=== PATIENT | male | born 1930 | race Caucasian/White ===

== ENCOUNTER 2017-11-09 14:13 | Emergency (ER) | payer MEDICARE, BC ==
[~2017-11-09 14:13] MED LIST: Donnatal Elixir 16.2 MG/5 ML UDCUP ONE
[2017-11-09 15:03] LABS: #Basophils 0.1 thou/uL (0.0-0.2); #Eosinphils 0.3 thou/uL (0.0-0.7); #Lymphocytes 1.1 thou/uL (1.20-3.40); #Monocytes 0.7 thou/uL (0.11-0.59); #Neutrophils 7.1 thou/uL (1.40-6.50); %Basophils 0.6 % (0.0-1.0); %Eosinophils 3.3 % (0.0-10.0); %Monocytes 7.7 % (0.0-10.0); %Neutrophils 76.4 % (42.0-75.0); Hemoglobin 15.2 g/dL (14.0-18.0); Mean Corpuscular HGB CONC 32.8 g/dL (32.0-36.0); Mean Corpuscular Hemoglobin 32.9 pg (27.0-31.0); Mean Corpuscular Volume 100.4 fl (80.0-94.0); Mean Platelet Volume 8.5 fL (7.4-10.4); Platelet Count 197 thou/uL (130-400); RBC Distribution Width 12.1 % (11.5-14.5); Red Blood Cell (RBC) Count 4.63 mill/uL (4.70-6.10); White Blood Cell (WBC) Count 9.3 thou/uL (4.8-10.8)
--- NOTE | 2017-11-09 15:05 | RAD ---
RADIOGRAPH CHEST 1 VIEW: HISTORY: 87-year-old male with chest pain. FINDINGS: There is no air space density, pulmonary edema, or pneumothorax. The right lateral costophrenic angl es is sharp. The left lateral costophrenic angle is effaced. IMPRESSION: 1. No acute pulmonary findings. 2. Small left pleural effusion vs. scarring at left pleurodiaphragmatic interface. ashwini POS: ABBIE
[2017-11-09] MEDS ORDERED: Donnatal Elixir 16.2 MG/5 ML UDCUP ONE (15:12)
[2017-11-09] MEDS ORDERED: Mag-Al Plus 1200 MG/1200 MG/120 MG/30 ML UDCUP ONE (15:12)
[2017-11-09] MEDS ORDERED: Lidocaine Viscous Sol 2% 15 ml UD Cup ONE (15:12)
[2017-11-09 15:19] LABS: ALT (SGPT) 18 U/L (8-55); AST (SGOT) 19 U/L (5-34); Albumin 4.2 g/dL (3.4-4.8); Alkaline Phosphatase 46 U/L (40-150); Anion Gap 16 mmol/L (10-20); BUN (Urea Nitrogen) 22 mg/dL (8.4-25.7); Bilirubin, Total 0.5 mg/dL (0.2-1.2); Calc. Creatinine Clearance 0 mL/min (70-130); Calcium 9.2 mg/dL (7.8-10.44); Carbon Dioxide 26 mmol/L (23-31); Chloride 105 mmol/L (98-107); Estimated GFR-MDRD 46; Globulin 2.9 g/dL (2.4-3.5); Glucose 119 mg/dL (83-110); Protein, Total 7.1 g/dL (5.8-8.1); Sodium 142 mmol/L (136-145)
[2017-11-09 15:20] LABS: CKMB 1.6 ng/mL (0-6.6); Troponin I Less than 0.010 ng/mL (< 0.028)
== END 2017-11-09 15:43 | disposition home or self-care (01) ==
LOC: MADERS 14:13
DX: R07.89 Other chest pain (principal); R10.13 Epigastric pain; E78.5 Hyperlipidemia, unspecified; I10 Essential (primary) hypertension; Z79.82 Long term (current) use of aspirin; Z79.899 Other long term (current) drug therapy
CPT/HCPCS: 36415; 71045; 80053; 82553; 84484; 85025; 93005

== ENCOUNTER 2019-10-18 22:46 | Emergency (ER) | payer BC, MEDICARE, OTHER ==
[2019-10-18 23:30] LABS: Mean Corpuscular HGB CONC 32.4 g/dL (32.0-36.0); Mean Corpuscular Hemoglobin 32.3 pg (27.0-31.0); Mean Corpuscular Volume 99.9 fL (78.0-98.0); Mean Platelet Volume 9.8 fL (7.4-10.4); Platelet Count 163 thou/uL (130-400); RBC Distribution Width 11.9 % (11.5-14.5); Red Blood Cell (RBC) Count 4.64 mill/uL (4.70-6.10); White Blood Cell (WBC) Count 18.2 thou/uL (4.8-10.8)
[2019-10-18 23:40] LABS: Band 17 % (5-11); Lymphocytes 1 % (21-51); MDiff Complete? YES; Monocytes 10 % (0-10); Neutrophil 72 % (42-75); Platelet Morphology Comment Appears Adequate; RBC Morphology Normal
[2019-10-18 23:46] LABS: ALT (SGPT) 340 U/L (8-55); AST (SGOT) 460 U/L (5-34); Alkaline Phosphatase 112 U/L (40-110); Anion Gap 16 mmol/L (10-20); BUN (Urea Nitrogen) 24 mg/dL (8.4-25.7); Bilirubin, Total 3.3 mg/dL (0.2-1.2); Calc. Creatinine Clearance 0 mL/min (70-130); Calcium 8.8 mg/dL (7.8-10.44); Carbon Dioxide 25 mmol/L (23-31); Chloride 104 mmol/L (98-107); Estimated GFR-MDRD 71; Globulin 2.4 g/dL (2.4-3.5); Glucose 146 mg/dL (83-110); Potassium 3.6 mmol/L (3.5-5.1); Protein, Total 6.4 g/dL (5.8-8.1); Sodium 141 mmol/L (136-145)
[2019-10-18] MEDS ORDERED: Acetaminophen 500 MG TAB ONE (23:58)
== END 2019-10-19 00:58 | disposition short-term general hospital (02) ==
LOC: MADERS 22:46
DX: R11.2 Nausea with vomiting, unspecified (principal); R94.5 Abnormal results of liver function studies; I25.2 Old myocardial infarction; I49.9 Cardiac arrhythmia, unspecified; I10 Essential (primary) hypertension; I48.91 Unspecified atrial fibrillation; E78.00 Pure hypercholesterolemia, unspecified; E78.5 Hyperlipidemia, unspecified; Z95.5 Presence of coronary angioplasty implant and graft
CPT/HCPCS: 80053; 83605; 83880; 84484; 85025; 87804; 93005; 96360

== ENCOUNTER 2019-10-22 08:30 | Emergency (ER) | payer MEDICARE ==
[2019-10-22] MEDS ORDERED: Sodium Chloride 0.45% 1,000 ML ONE (09:15)
[2019-10-22] MEDS ORDERED: Meropenem 1 GM VIAL ONE (09:15)
[2019-10-22] MEDS ORDERED: Sodium Chloride 0.9% 100 ML ONE (09:15)
[2019-10-22 09:33] LABS: #Basophils 0.1 thou/uL (0.0-0.2); #Lymphocytes 0.5 thou/uL (1.20-3.40); #Monocytes 1.2 thou/uL (0.11-0.59); #Neutrophils 13.5 thou/uL (1.40-6.50); %Basophils 0.7 % (0.0-1.0); %Eosinophils 0.2 % (0.0-10.0); %Lymphocytes 3.2 % (21.0-51.0); %Monocytes 7.8 % (0.0-10.0); Hemoglobin 13.1 g/dL (14.0-18.0); Mean Corpuscular Hemoglobin 32.4 pg (27.0-31.0); Mean Corpuscular Volume 98.2 fL (78.0-98.0); Mean Platelet Volume 9.5 fL (7.4-10.4); Platelet Count 151 thou/uL (130-400); RBC Distribution Width 11.8 % (11.5-14.5); Red Blood Cell (RBC) Count 4.05 mill/uL (4.70-6.10); White Blood Cell (WBC) Count 15.4 thou/uL (4.8-10.8)
[2019-10-22 09:49] LABS: ALT (SGPT) 707 U/L (8-55); AST (SGOT) 596 U/L (5-34); Albumin 3.5 g/dL (3.4-4.8); Alkaline Phosphatase 123 U/L (40-110); Anion Gap 16 mmol/L (10-20); BUN (Urea Nitrogen) 13 mg/dL (8.4-25.7); Bilirubin, Total 3.5 mg/dL (0.2-1.2); CK (CPK) 639 U/L (30-200); Calc. Creatinine Clearance 0 mL/min (70-130); Calcium 8.9 mg/dL (7.8-10.44); Carbon Dioxide 24 mmol/L (23-31); Chloride 99 mmol/L (98-107); Estimated GFR-MDRD Greater than 90; Globulin 2.7 g/dL (2.4-3.5); Glucose 131 mg/dL (83-110); Lipase 11 U/L (8-78); Potassium 3.7 mmol/L (3.5-5.1); Protein, Total 6.2 g/dL (5.8-8.1); Sodium 135 mmol/L (136-145)
[2019-10-22 10:06] LABS: CKMB 1.7 ng/mL (0-6.6)
[2019-10-22] MEDS ORDERED: Iopamidol 370 76% 125 ML VIAL FS ONE (10:22)
[2019-10-22] MEDS ORDERED: Sodium Chloride 0.9% 100 ML BAG ONE (10:22)
[2019-10-22 10:58] LABS: Bilirubin Small (Negative); Blood, Urine Moderate (Negative); Clarity Clear (Clear); Glucose, Urine (Dipstick) Negative (Negative); Leukocyte Negative (Negative); Nitrite Negative (Negative); Protein, Urine (Dipstick) 100 mg/dL (Neg-Trace)
--- NOTE | 2019-10-22 11:01 | RAD ---
XR Chest 1 View Portable HISTORY: Dyspnea COMPARISON: 11/09/2017 FINDINGS: The heart size is prominent. The lungs are well expanded without focal areas of consolidati on, pneumothorax or pleural effusions. There is no evidence of vel edema. There is elevation the right hemidiaphragm. There are degenerative changes in the shoulder joints.
[2019-10-22 11:02] LABS: Bacteria/HPF Rare-Few HPF (None Seen); RBC/HPF 0-3 HPF (0-3); Squamous Epithelial 0-3 HPF (0-3); WBC/HPF None Seen HPF (0-3)
[2019-10-22] MEDS ORDERED: Sodium Chloride 0.9% 1,000 ML ONE (11:22)
--- NOTE | 2019-10-22 12:33 | CT ---
CT PULMONARY ANGIOGRAM WITH IV CONTRAST AND 3D POST PROCESSING: HISTORY: Dyspnea. The patient had a cholecystectomy two days ago. FINDINGS: There is good contrast opacification of the pulmonary arterial vasculature without filling defects to suggest pulmonary embolism. The thoracic aorta is well opacified without aneurysmal dissection. Ther e is elevation of the right hemidiaphragm. A small right pleural effusion is seen with adjacent infil trate/atelectatic changes. There is a 6 mm peripheral nodule in the lateral segment of the right midd le lobe. Upper abdominal tomograms demonstrate changes of cholecystectomy and free air in the gallbladder elidia a and in the right subdiaphragmatic region, likely from recent cholecystectomy. IMPRESSION: No CT evidence of pulmonary embolism. 6 month foloowup of lung nodule with CT scan is recommended. Code LN POS: ABBIE
== END 2019-10-22 12:00 | disposition short-term general hospital (02) ==
LOC: MADERS 08:30
DX: R50.82 Postprocedural fever (principal); K83.1 Obstruction of bile duct; R79.89 Other specified abnormal findings of blood chemistry; I25.2 Old myocardial infarction; I48.91 Unspecified atrial fibrillation; E78.5 Hyperlipidemia, unspecified; I10 Essential (primary) hypertension; E78.00 Pure hypercholesterolemia, unspecified
CPT/HCPCS: 71045; 71275; 80053; 81003; 81015; 82150; 82550; 82553; 83690; 84484; 85025; 85379; 87040; 87086; 93005; 96365; 96366; J2185; J3490; J7050; Q9967

== ENCOUNTER 2019-10-25 19:37 | Inpatient (IN) | payer MEDICARE ==
[2019-10-25 20:33] VITALS: BMI 24.8
[2019-10-25] MEDS ORDERED: Bisacodyl 10 MG SUPP PR PRN (22:12)
[2019-10-25] MEDS ORDERED: Nitroglycerin 0.4 MG TAB (25 Tab Bottle) SL PRN (22:13)
[2019-10-25] MEDS ORDERED: Tamsulosin HCl 0.4 MG CAP PO SCH (22:15)
[2019-10-25] MEDS ORDERED: Polyethylene Glycol 3350 17 GM Packet PO SCH (22:15)
[2019-10-25] MEDS: Tamsulosin HCl 0.4 MG CAP PO SCH (22:17)
[2019-10-26 05:44] LABS: #Basophils 0.1 thou/uL (0.0-0.2); #Eosinphils 0.2 thou/uL (0.0-0.7); #Lymphocytes 0.9 thou/uL (1.20-3.40); #Monocytes 1.2 thou/uL (0.11-0.59); #Neutrophils 9.5 thou/uL (1.40-6.50); %Basophils 0.8 % (0.0-1.0); %Eosinophils 1.8 % (0.0-10.0); %Lymphocytes 7.3 % (21.0-51.0); %Monocytes 10.3 % (0.0-10.0); %Neutrophils 79.8 % (42.0-75.0); Hemoglobin 11.8 g/dL (14.0-18.0); Mean Corpuscular HGB CONC 32.8 g/dL (32.0-36.0); Mean Corpuscular Hemoglobin 32.2 pg (27.0-31.0); Mean Corpuscular Volume 98.1 fL (78.0-98.0); Mean Platelet Volume 7.7 fL (7.4-10.4); Platelet Count 218 thou/uL (130-400); RBC Distribution Width 11.5 % (11.5-14.5); Red Blood Cell (RBC) Count 3.66 mill/uL (4.70-6.10); White Blood Cell (WBC) Count 11.9 thou/uL (4.8-10.8)
[2019-10-26 05:58] LABS: ALT (SGPT) 204 U/L (8-55); AST (SGOT) 51 U/L (5-34); Albumin 2.9 g/dL (3.4-4.8); Alkaline Phosphatase 74 U/L (40-110); Anion Gap 14 mmol/L (10-20); BUN (Urea Nitrogen) 18 mg/dL (8.4-25.7); Bilirubin, Total 1.7 mg/dL (0.2-1.2); Calc. Creatinine Clearance 83 mL/min (70-130); Calcium 8.4 mg/dL (7.8-10.44); Carbon Dioxide 27 mmol/L (23-31); Chloride 99 mmol/L (98-107); Estimated GFR-MDRD Greater than 90; Globulin 2.5 g/dL (2.4-3.5); Glucose 114 mg/dL (83-110); Potassium 3.4 mmol/L (3.5-5.1); Protein, Total 5.4 g/dL (5.8-8.1); Sodium 137 mmol/L (136-145)
[2019-10-26] MEDS ORDERED: Magnesium Citrate 300 ML BOT PO PRN (08:00)
[2019-10-26] MEDS: Carvedilol 3.125 MG TAB PO SCH ×2 (08:27→17:00)
[2019-10-26] MEDS: Polyethylene Glycol 3350 17 GM Packet PO SCH (08:27)
[2019-10-26] MEDS: Apixaban 5 MG TAB PO SCH ×2 (08:27→20:08)
[2019-10-26] MEDS: Clopidogrel Bisulfate 75 MG TAB PO SCH (08:27)
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
[2019-10-26] MEDS ORDERED: Tamsulosin HCl 0.4 MG CAP PO SCH (20:15)
[2019-10-27] MEDS: Apixaban 5 MG TAB PO SCH ×2 (08:32→20:35)
[2019-10-27] MEDS: Polyethylene Glycol 3350 17 GM Packet PO SCH (08:32)
[2019-10-27] MEDS: Clopidogrel Bisulfate 75 MG TAB PO SCH (08:32)
[2019-10-27] MEDS: Carvedilol 3.125 MG TAB PO SCH ×2 (08:32→17:02)
--- NOTE | 2019-10-27 09:36 | PRG ---
DATE OF SERVICE: SUBJECTIVE: The patient said that he is doing pretty good this morning. He has already been up walking some with physical therapist. His daughter said that he is urinating just a little bit more often than usual in smaller amounts. He denies any burning. He just was worried that he is getting urinary tract infection since he had the UTI with sepsis back in the summer. He is presently on Levaquin. He is using the incentive spirometer, but not as often. He said he did have a little bowel movement after suppository early this morning. OBJECTIVE: GENERAL: The patient is sitting up in a bedside chair, preparing the breakfast. He is alert, appears in no distress. VITAL SIGNS: Temperature of 98.1, pulse 73, respirations 16, O2 sat 96% on room air, and blood pressure 150/72. LUNGS: Clear. HEART: Regular rate. EXTREMITIES: No edema. ASSESSMENT: 1. Generalized weakness and deconditioning. a. Following recent acute cholecystitis and choledocholithiasis and surgery. b. Recently hospitalized at [facility] from 10/19 to 10/21/2019 for acute cholelithiasis and choledocholithiasis, requiring laparoscopic cholecystectomy and ERCP with balloon extraction of the biliary calculus. Hospitalized from 10/22 to 10/25/2019 for fever and weakness. Fever from atelectasis. c. Improved as of 10/27/2019 2. Recent acute cholecystitis and choledocholithiasis. a. Status post laparoscopic cholecystectomy on 10/20/2019. b. Status post ERCP with balloon extraction of biliary calculus on 2019. c. Liver enzymes normalizing. d. Healing. 3. Coronary artery disease. a. Status post stents x2, 2006. b. Presently asymptomatic. 4. Paroxysmal atrial fibrillation. a. Eliquis. b. Rate controlled. 5. Benign prostatic hypertrophy. 6. Hearing impairment. 7. Hypercholesterolemia. PLAN: Continue PT. Check a UA. Continue the MiraLAX. We will continue to hold the simvastatin until liver studies normalized. We will recheck CBC and CMP in the morning. Job ID: [id number] MTDD
[2019-10-27 09:52] LABS: ALT (SGPT) 194 U/L (8-55); AST (SGOT) 55 U/L (5-34); Albumin 3.5 g/dL (3.4-4.8); Alkaline Phosphatase 84 U/L (40-110); Anion Gap 16 mmol/L (10-20); BUN (Urea Nitrogen) 19 mg/dL (8.4-25.7); Calc. Creatinine Clearance 74 mL/min (70-130); Carbon Dioxide 27 mmol/L (23-31); Chloride 98 mmol/L (98-107); Estimated GFR-MDRD 90; Globulin 3.2 g/dL (2.4-3.5); Glucose 129 mg/dL (83-110); Protein, Total 6.7 g/dL (5.8-8.1); Sodium 137 mmol/L (136-145)
[2019-10-27 10:27] LABS: Bilirubin Small (Negative); Blood, Urine Small (Negative); Clarity Clear (Clear); Glucose, Urine (Dipstick) Negative (Negative); Leukocyte Negative (Negative); Nitrite Negative (Negative); Protein, Urine (Dipstick) 30 mg/dL (Neg-Trace); Urobilinogen > or = 8.0 mg/dL (Less than 2)
[2019-10-27 10:30] LABS: Potassium 3.6 mmol/L (3.5-5.1)
[2019-10-27 10:36] LABS: Bacteria/HPF Rare-Few HPF (None Seen); Squamous Epithelial 0-3 HPF (0-3); WBC/HPF 0-3 HPF (0-3)
[2019-10-27] MEDS: Acetaminophen 500 MG TAB PO PRN (20:35)
[2019-10-27] MEDS: Tamsulosin HCl 0.4 MG CAP PO SCH (20:35)
[2019-10-28 05:38] LABS: #Basophils 0.1 thou/uL (0.0-0.2); #Eosinphils 0.2 thou/uL (0.0-0.7); #Monocytes 1.2 thou/uL (0.11-0.59); #Neutrophils 13.8 thou/uL (1.40-6.50); %Basophils 0.5 % (0.0-1.0); %Eosinophils 1.2 % (0.0-10.0); %Lymphocytes 6.4 % (21.0-51.0); %Monocytes 7.2 % (0.0-10.0); %Neutrophils 84.6 % (42.0-75.0); Mean Corpuscular HGB CONC 33.8 g/dL (32.0-36.0); Mean Corpuscular Hemoglobin 32.8 pg (27.0-31.0); Mean Corpuscular Volume 97.1 fL (78.0-98.0); Mean Platelet Volume 7.3 fL (7.4-10.4); Platelet Count 260 thou/uL (130-400); RBC Distribution Width 11.6 % (11.5-14.5); Red Blood Cell (RBC) Count 3.65 mill/uL (4.70-6.10); White Blood Cell (WBC) Count 16.3 thou/uL (4.8-10.8)
[2019-10-28] MEDS: Polyethylene Glycol 3350 17 GM Packet PO SCH (08:42)
[2019-10-28] MEDS: Clopidogrel Bisulfate 75 MG TAB PO SCH (08:42)
[2019-10-28] MEDS: Carvedilol 3.125 MG TAB PO SCH ×2 (08:42→17:35)
[2019-10-28] MEDS: Apixaban 5 MG TAB PO SCH ×2 (08:42→21:39)
--- NOTE | 2019-10-28 12:02 | PRG ---
DATE OF SERVICE: 10/28/2019 SUBJECTIVE: The patient said he is doing good. He has already been walking this morning and he is doing better. He is still requiring some assistance with his transfers, but he is feeling a little stronger. He says he is urinating okay. There is no burning. He says his bowels are moving some and he thinks they are a lot better. OBJECTIVE: GENERAL: The patient is sitting up in a bedside chair, visiting with his . He appears very comfortable, in no distress. VITAL SIGNS: His temperature is 97.5, pulse 73, respirations 18, O2 saturation 98% on room air, blood pressure 143/69. LUNGS: Clear. HEART: Regular rate. EXTREMITIES: The patient has some trace edema in his legs. LABORATORY DATA: His H and H are 12 and 35.4, white cell count 16,300, 84% segs , 6% lymphocytes, and platelet count of 260,000. Sodium 137, potassium 3.6, BUN 19, creatinine 0.81, glucose 129, total bilirubin 2, AST 55, ALT 194, albumin up to 3.5. Urinalysis showed 4 to 6 rbc's, 0 to 3 wbc's, nitrite negative. ASSESSMENT: 1. Generalized weakness and deconditioning. a. Following recent acute cholecystitis and choledocholithiasis and surgery. b. Improving as of 10/28/2019. 2. Recent acute cholecystitis and choledocholithiasis. a. Status post laparoscopic cholecystectomy on 10/20/2019. b. Status post ERCP with balloon extraction of biliary calculus on 2019. c. Liver enzyme elevation is gradually normalizing as of 10/28/2019. d. Continued improvement as of 10/28/2019. 3. Rehospitalization at [facility] from 10/22/2019 to 10/25/2019 for fever and weakness, that is felt to be secondary to atelectasis and possibility of some mild aspiration. 4. Coronary artery disease. a. Status post stents x2 in 2006. b. Presently asymptomatic. 5. Paroxysmal atrial fibrillation. a. On chronic anticoagulation with Eliquis. b. Rate controlled. 6. Benign prostatic enlargement. 7. Hearing impairment. 8. Hypercholesterolemia. PLAN: The patient is making continued gradual improvement. We will continue present care. He remains afebrile. His white cell count is mildly elevated, but he does not have anymore of the band formation. We will continue to follow this. The patient presently has no evidence of any infection. Continue the incentive spirometry. Continue PT and OT. We will have patient wear some knee-high support hose when he is out of bed. Job ID: [id number] [facility]
[2019-10-28] MEDS: Acetaminophen 500 MG TAB PO PRN (21:39)
[2019-10-28] MEDS: Tamsulosin HCl 0.4 MG CAP PO SCH (21:39)
[2019-10-28] MEDS ORDERED: Melatonin 3 MG TAB PO SCH (22:30)
[2019-10-29] MEDS: Apixaban 5 MG TAB PO SCH ×2 (08:27→20:53)
[2019-10-29] MEDS: Polyethylene Glycol 3350 17 GM Packet PO SCH (08:27)
[2019-10-29] MEDS: Carvedilol 3.125 MG TAB PO SCH ×2 (08:27→17:16)
[2019-10-29] MEDS: Clopidogrel Bisulfate 75 MG TAB PO SCH (08:27)
[2019-10-29] MEDS: Tamsulosin HCl 0.4 MG CAP PO SCH (20:53)
[2019-10-29] MEDS: Melatonin 3 MG TAB PO SCH (20:53)
[2019-10-30] MEDS: Acetaminophen 500 MG TAB PO PRN (03:17)
[2019-10-30] MEDS: Apixaban 5 MG TAB PO SCH ×2 (08:28→20:36)
[2019-10-30] MEDS: Carvedilol 3.125 MG TAB PO SCH ×2 (08:28→17:12)
[2019-10-30] MEDS: Clopidogrel Bisulfate 75 MG TAB PO SCH (08:28)
[2019-10-30] MEDS: Polyethylene Glycol 3350 17 GM Packet PO SCH (08:29)
[2019-10-30] MEDS ORDERED: Fluconazole 100 MG TAB PO SCH (15:00)
[2019-10-30] MEDS: Clotrimazole 1% Cream 15 GM TUBE TOP SCH (20:36)
[2019-10-30] MEDS: Tamsulosin HCl 0.4 MG CAP PO SCH (20:37)
[2019-10-30] MEDS: Melatonin 3 MG TAB PO SCH (20:37)
[2019-10-31 05:26] LABS: #Basophils 0.1 thou/uL (0.0-0.2); #Eosinphils 0.3 thou/uL (0.0-0.7); #Lymphocytes 1.2 thou/uL (1.20-3.40); #Neutrophils 9.1 thou/uL (1.40-6.50); %Basophils 0.6 % (0.0-1.0); %Eosinophils 2.4 % (0.0-10.0); %Lymphocytes 9.9 % (21.0-51.0); %Monocytes 8.6 % (0.0-10.0); %Neutrophils 78.4 % (42.0-75.0); Hemoglobin 11.7 g/dL (14.0-18.0); Mean Corpuscular HGB CONC 32.4 g/dL (32.0-36.0); Mean Corpuscular Volume 98.6 fL (78.0-98.0); Platelet Count 340 thou/uL (130-400); RBC Distribution Width 11.9 % (11.5-14.5); Red Blood Cell (RBC) Count 3.65 mill/uL (4.70-6.10); White Blood Cell (WBC) Count 11.7 thou/uL (4.8-10.8)
[2019-10-31 05:39] LABS: Anion Gap 14 mmol/L (10-20); BUN (Urea Nitrogen) 16 mg/dL (8.4-25.7); Calc. Creatinine Clearance 78 mL/min (70-130); Calcium 8.4 mg/dL (7.8-10.44); Carbon Dioxide 25 mmol/L (23-31); Chloride 101 mmol/L (98-107); Estimated GFR-MDRD Greater than 90; Glucose 115 mg/dL (83-110); Potassium 4.2 mmol/L (3.5-5.1); Sodium 136 mmol/L (136-145)
--- NOTE | 2019-10-31 08:12 | PRG ---
DATE OF SERVICE: 10/29/2019 SUBJECTIVE: The patient says he is feeling good this morning. Said he had a very good night. He had asked for something to help him sleep. He was given his Tylenol and also melatonin 3 mg. Said this worked very good. He slept through the night. OBJECTIVE: GENERAL: The patient is sitting up in a bedside chair. He is alert and talkative, appears comfortable, in no distress. VITAL SIGNS: Temperature 98.7, pulse 60, respirations 16, O2 saturations 97% on room air, blood pressure 153/72. LUNGS: Good breath sounds. Lungs are clear. HEART: Regular rate. EXTREMITIES: No edema. The patient is wearing his knee-high support hose. ASSESSMENT: 1. Generalized weakness and deconditioning. a. Following recent acute cholecystitis and choledocholithiasis and surgery. b. Improving as of 10/29/2019. 2. Recent acute cholecystitis and choledocholithiasis. a. Status post laparoscopic cholecystectomy on 10/20/2019. b. Status post endoscopic retrograde cholangiopancreatography with balloon extraction of biliary calculus on 10/20/2019. c. Liver enzyme elevation gradually normalizing. d. Continued improvement in healing as of 10/29/2019. 3. Rehospitalization at [facility] from 10/22 until 10/25/2019 for fever and weakness that was felt to be deconditioning and atelectasis and possible mild aspiration. a. Remains afebrile and with excellent breath sounds and normal O2 saturation as of 10/29/2019. 4. Coronary artery disease. a. Status post stents x2, 2006. b. Presently asymptomatic. 5. Paroxysmal atrial fibrillation. a. On chronic anticoagulation with Eliquis. b. Rate control. 6. Benign prostatic enlargement. 7. Hearing impairment. 8. Hypercholesterolemia. PLAN: Continue present care. Continue the melatonin and Tylenol as needed. Continue PT and OT. Job ID: [id number] [facility]
[2019-10-31] MEDS: Fluconazole 100 MG TAB PO SCH (08:22)
[2019-10-31] MEDS: Clotrimazole 1% Cream 15 GM TUBE TOP SCH ×2 (08:22→20:19)
[2019-10-31] MEDS: Carvedilol 3.125 MG TAB PO SCH ×2 (08:22→17:47)
[2019-10-31] MEDS: Clopidogrel Bisulfate 75 MG TAB PO SCH (08:22)
[2019-10-31] MEDS: Apixaban 5 MG TAB PO SCH ×2 (08:22→20:19)
[2019-10-31] MEDS: Polyethylene Glycol 3350 17 GM Packet PO SCH (08:24)
--- NOTE | 2019-10-31 08:49 | PRG ---
DATE OF SERVICE: 10/31/2019 SUBJECTIVE: The patient said he is doing better. He walked a lot yesterday with family assisting. He slept good last night. This morning, he is feeling fine and has already been to therapy. OBJECTIVE: GENERAL: The patient is sitting up in the chair, visiting his daughter. He is alert, appears in no distress. VITAL SIGNS: Temp 99.2 during the night, pulse 72, respirations 18, O2 saturation 98% on room air, blood pressure 131/62. LUNGS: Clear. HEART: Regular rate. EXTREMITIES: No edema. LABORATORY DATA: His lab shows H and H of 11.7 and 36, white cell count down to 11,700 with 78% segs and 10% lymphocytes, platelet count 340,000. Sodium 136, potassium 4.2, BUN 16, creatinine 0.77, glucose 115. ASSESSMENT: 1. Generalized weakness and deconditioning. a. Following a recent acute cholecystitis and choledocholithiasis and surgery. b. Improving as of 10/31/2019. 2. Recent acute cholecystitis and choledocholithiasis. a. Status post laparoscopic cholecystectomy on 10/20/2019. b. Status post endoscopic retrograde cholangiopancreatography with balloon extraction of biliary calculus on 10/20/2019. c. Liver enzyme elevation, gradually improving as of 10/28/2019. d. Continued improvement as of 10/31/2019. 3. Rehospitalization at [facility] from 10/22/2019 to 10/25/2019 for fever and weakness. This felt to be secondary to deconditioning, atelectasis, and possible mild aspiration. 4. Coronary artery disease. a. Status post stents x2 in 2017. b. Presently asymptomatic. 5. Paroxysmal atrial fibrillation. a. On chronic anticoagulation with Eliquis. b. Rate controlled. 6. Benign prostatic enlargement. 7. Hearing impairment. 8. Hypercholesterolemia. a. Simvastatin presently being held until liver recovers from recent insult from the choledocholithiasis. PLAN: Continue present care. Continue OT. The patient will complete his Levaquin tomorrow. The patient developed a candidiasis of the glans penis for which he was started on fluconazole and clotrimazole cream. Job ID: [id number] [facility]
[2019-10-31] MEDS: Melatonin 3 MG TAB PO SCH (20:19)
[2019-10-31] MEDS: Tamsulosin HCl 0.4 MG CAP PO SCH (20:19)
[2019-11-01] MEDS: Apixaban 5 MG TAB PO SCH ×2 (08:23→20:12)
[2019-11-01] MEDS: Clotrimazole 1% Cream 15 GM TUBE TOP SCH ×2 (08:23→20:13)
[2019-11-01] MEDS: Carvedilol 3.125 MG TAB PO SCH ×2 (08:23→17:04)
[2019-11-01] MEDS: Clopidogrel Bisulfate 75 MG TAB PO SCH (08:23)
[2019-11-01] MEDS: Fluconazole 100 MG TAB PO SCH (08:23)
[2019-11-01] MEDS: Polyethylene Glycol 3350 17 GM Packet PO SCH (08:23)
[2019-11-01 08:56] LABS: ALT (SGPT) 68 U/L (8-55); AST (SGOT) 29 U/L (5-34); Albumin 3.5 g/dL (3.4-4.8); Alkaline Phosphatase 76 U/L (40-110); Anion Gap 14 mmol/L (10-20); BUN (Urea Nitrogen) 15 mg/dL (8.4-25.7); Bilirubin, Total 1.4 mg/dL (0.2-1.2); Calc. Creatinine Clearance 75 mL/min (70-130); Calcium 9.3 mg/dL (7.8-10.44); Carbon Dioxide 26 mmol/L (23-31); Chloride 100 mmol/L (98-107); Estimated GFR-MDRD Greater than 90; Globulin 3.3 g/dL (2.4-3.5); Glucose 127 mg/dL (83-110); Potassium 4.1 mmol/L (3.5-5.1); Protein, Total 6.8 g/dL (5.8-8.1); Sodium 136 mmol/L (136-145)
--- NOTE | 2019-11-01 10:31 | PRG ---
DATE OF SERVICE: 11/01/2019 SUBJECTIVE: The patient says he is doing pretty good. He woke up early this morning. He is little tired this morning. He has already had his physical therapy. Still thinks he will be able to go home on Thursday on 11/04. OBJECTIVE: GENERAL: The patient is sitting up in a chair, visiting with his daughter. VITAL SIGNS: Temperature 97.8; pulse 95; respirations 16; O2 saturation 98%; this morning, it was down a little bit to 91; blood pressure 134/66. LUNGS: Clear. HEART: Regular rate. EXTREMITIES: No edema. ASSESSMENT: 1. Generalized weakness and deconditioning. a. Following a recent acute cholecystitis and choledocholithiasis and surgery. b. Improving as of 11/01/2019. 2. Recent acute cholecystitis and choledocholithiasis. a. Status post laparoscopic cholecystectomy on 10/20/2019. b. Status post endoscopic retrograde cholangiopancreatography with balloon extraction of biliary calculus on 10/20/2019. c. Liver enzyme elevation, gradually improving as of 10/28/2019. d. Continued improvement as of 11/01/2019. 3. Rehospitalization at [facility] from 10/22/2019 to 10/25/2019 for fever and weakness. This felt to be secondary to deconditioning, atelectasis, and possible mild aspiration. 4. Coronary artery disease. a. Status post stents x2 in 2017. b. Presently asymptomatic. 5. Paroxysmal atrial fibrillation. a. On chronic anticoagulation with Eliquis. b. Rate controlled. 6. Benign prostatic enlargement. 7. Hearing impairment. 8. Hypercholesterolemia. a. Simvastatin presently being held until liver recovers from recent insult from th PLAN: Continue present care. Continue monitoring vital signs and O2 saturation. Anticipate discharge on 11/04. Job ID: [id number] MTDD
[2019-11-01 18:32] LABS: Bilirubin Negative (Negative); Blood, Urine Negative (Negative); Clarity Clear (Clear); Glucose, Urine (Dipstick) Negative (Negative); Leukocyte Negative (Negative); Nitrite Negative (Negative); Protein, Urine (Dipstick) Negative (Neg-Trace)
[2019-11-01 18:54] LABS: Bacteria/HPF Rare-Few HPF (None Seen); RBC/HPF 0-3 HPF (0-3); Squamous Epithelial 0-3 HPF (0-3); WBC/HPF None Seen HPF (0-3)
[2019-11-01] MEDS: Tamsulosin HCl 0.4 MG CAP PO SCH (20:12)
[2019-11-01] MEDS: Melatonin 3 MG TAB PO SCH (20:12)
[2019-11-02 05:26] LABS: #Basophils 0.1 thou/uL (0.0-0.2); #Eosinphils 0.4 thou/uL (0.0-0.7); #Lymphocytes 1.4 thou/uL (1.20-3.40); %Basophils 0.8 % (0.0-1.0); %Eosinophils 3.5 % (0.0-10.0); %Monocytes 8.4 % (0.0-10.0); %Neutrophils 75.3 % (42.0-75.0); Hemoglobin 11.9 g/dL (14.0-18.0); Mean Corpuscular Hemoglobin 31.5 pg (27.0-31.0); Mean Corpuscular Volume 98.5 fL (78.0-98.0); Mean Platelet Volume 6.8 fL (7.4-10.4); Platelet Count 373 thou/uL (130-400); RBC Distribution Width 11.6 % (11.5-14.5); Red Blood Cell (RBC) Count 3.79 mill/uL (4.70-6.10); White Blood Cell (WBC) Count 11.9 thou/uL (4.8-10.8)
[2019-11-02] MEDS: Carvedilol 3.125 MG TAB PO SCH ×2 (08:18→17:10)
[2019-11-02] MEDS: Fluconazole 100 MG TAB PO SCH (08:18)
[2019-11-02] MEDS: Apixaban 5 MG TAB PO SCH ×2 (08:18→20:40)
[2019-11-02] MEDS: Clopidogrel Bisulfate 75 MG TAB PO SCH (08:18)
[2019-11-02] MEDS: Clotrimazole 1% Cream 15 GM TUBE TOP SCH ×2 (08:20→20:41)
[2019-11-02] MEDS: Polyethylene Glycol 3350 17 GM Packet PO SCH (08:20)
--- NOTE | 2019-11-02 09:41 | PRG ---
DATE OF SERVICE: 11/02/2019 SUBJECTIVE: The patient said he had a good night, slept better. This morning, he feels better. He has already been to physical therapy. Yesterday, he thought there might be a tiny speck of blood on his brief and this has not reoccurred. No definite blood was seen. Urinalysis was obtained and the urine showed specific gravity of 1.025. There were 0 to 3 rbc's and no wbc's. Urine blood was negative by dip. OBJECTIVE: GENERAL: The patient is sitting up in a bedside chair, preparing to eat his breakfast. He is alert and talkative, appears in no distress. VITAL SIGNS: His vital signs show a temperature of 97.8, pulse 60, respirations 16, O2 saturation 97% on room air, and blood pressure 132/67. LUNGS: Clear with excellent breath sounds. HEART: Regular rate. ABDOMEN: Incisions are all healing. EXTREMITIES: Lower extremities, no edema. LABORATORY DATA: His lab shows an H and H 11.9 and 37.3, white cell count 11, 900, 75% segs, 12% lymphocytes, and platelet count 373,000. Sodium 136, potassium 4.1 , BUN 15, creatinine 0.8, glucose 127, AST has normalized to 29, the ALT has dropped to 68, and alkaline phosphatase is normal at 76. His total bilirubin is 1.4. His weight is stable at 183. ASSESSMENT: 1. Generalized weakness and deconditioning. a. Following a recent acute cholecystitis and choledocholithiasis and surgery. b. Improving as of 11/02/2019. 2. Recent acute cholecystitis and choledocholithiasis. a. Status post laparoscopic cholecystectomy on 10/20/2019. b. Status post endoscopic retrograde cholangiopancreatography with balloon extraction of biliary calculus on 10/20/2019. c. Liver enzyme elevation gradually normalizing as of 11/02/2019. d. Continued improvement as of 11/02/2019. 3. Rehospitalization at [facility] from 10/22/2019 to 10/25/2019 for fever and weakness. This felt to be secondary to deconditioning, atelectasis, and possible mild aspiration. 4. Coronary artery disease. a. Status post stents x2 in 2017. b. Presently asymptomatic. 5. Paroxysmal atrial fibrillation. a. On chronic anticoagulation with Eliquis. b. Rate controlled. 6. Benign prostatic enlargement. 7. Hearing impairment. 8. Hypercholesterolemia. a. Simvastatin presently being held until liver recovers from recent insult from the choledocholithiasis. 9. Candidiasis of the glans penis. a. Resolving as of 11/02/2019. PLAN: Continue present care. Continue PT and OT. Anticipate discharge on Saturday 11/04. Job ID: [id number] MTDD
[2019-11-02] MEDS: Melatonin 3 MG TAB PO SCH (20:40)
[2019-11-02] MEDS: Tamsulosin HCl 0.4 MG CAP PO SCH (20:40)
[2019-11-03] MEDS: Polyethylene Glycol 3350 17 GM Packet PO SCH (08:43)
[2019-11-03] MEDS: Fluconazole 100 MG TAB PO SCH (08:43)
[2019-11-03] MEDS: Clopidogrel Bisulfate 75 MG TAB PO SCH (08:44)
[2019-11-03] MEDS: Carvedilol 3.125 MG TAB PO SCH ×2 (08:44→17:28)
[2019-11-03] MEDS: Clotrimazole 1% Cream 15 GM TUBE TOP SCH ×2 (08:44→21:00)
[2019-11-03] MEDS: Apixaban 5 MG TAB PO SCH ×2 (08:44→21:00)
--- NOTE | 2019-11-03 09:23 | PRG ---
DATE OF SERVICE: 11/03/2019 SUBJECTIVE: The patient said he is doing fine. He is not having any trouble. He has already had a workup with therapy this morning. He is getting everything prepared to go home tomorrow. OBJECTIVE: GENERAL: The patient is sitting in a chair. He is alert and talkative. VITAL SIGNS: Shows temperature 97.8, pulse 70, respirations 20, O2 saturation 97% on room air, and blood pressure 115/58. LUNGS: Good breath sounds. Lungs are clear. HEART: Regular rate. EXTREMITIES: No edema. ASSESSMENT: 1. Generalized weakness and deconditioning. a. Following a recent acute cholecystitis and choledocholithiasis and surgery. b. Improving as of 11/03/2019. 2. Recent acute cholecystitis and choledocholithiasis. a. Status post laparoscopic cholecystectomy on 10/20/2019. b. Status post endoscopic retrograde cholangiopancreatography with balloon extraction of biliary calculus on 10/20/2019. c. Liver enzyme elevation gradually normalizing as of 11/02/2019. d. Continued improvement as of 11/03/2019. 3. Rehospitalization at [facility] from 10/22/2019 to 10/25/2019 for fever and weakness. This felt to be secondary to deconditioning, atelectasis, and possible mild aspiration. 4. Coronary artery disease. a. Status post stents x2 in 2017. b. Presently asymptomatic. 5. Paroxysmal atrial fibrillation. a. On chronic anticoagulation with Eliquis. b. Rate controlled. 6. Benign prostatic enlargement. 7. Hearing impairment. 8. Hypercholesterolemia. a. Simvastatin presently being held until liver recovers from recent insult from the choledocholithiasis. 9. Candidiasis of the glans penis. a. Resolving as of 11/03/2019. PLAN: Continue present care. Continue PT and OT. Job ID: [id number] [facility]
[2019-11-03] MEDS: Melatonin 3 MG TAB PO SCH (21:00)
[2019-11-03] MEDS: Tamsulosin HCl 0.4 MG CAP PO SCH (21:01)
[2019-11-04 07:14] VITALS: BP 115/57; TEMP 97.9
[2019-11-04] MEDS: Carvedilol 3.125 MG TAB PO SCH (08:42)
[2019-11-04] MEDS: Clopidogrel Bisulfate 75 MG TAB PO SCH (08:42)
[2019-11-04] MEDS: Apixaban 5 MG TAB PO SCH (08:42)
[2019-11-04] MEDS: Clotrimazole 1% Cream 15 GM TUBE TOP SCH (08:42)
[2019-11-04] MEDS: Polyethylene Glycol 3350 17 GM Packet PO SCH (08:42)
== END 2019-11-04 11:40 | disposition home or self-care (01) | DRG 949 ==
LOC: MADMS 20:17
PROVIDERS: ADMIT Family Medicine; ATTEND Family Medicine
DX: Z48.815 Encounter for surgical aftercare following surgery on the digestive system (principal); J98.11 Atelectasis; B37.49 Other urogenital candidiasis; R53.1 Weakness; R53.81 Other malaise; I25.10 Atherosclerotic heart disease of native coronary artery without angina pectoris; I25.2 Old myocardial infarction; N40.0 Benign prostatic hyperplasia without lower urinary tract symptoms; Z79.899 Other long term (current) drug therapy; Z95.5 Presence of coronary angioplasty implant and graft; I48.0 Paroxysmal atrial fibrillation
CPT/HCPCS: 36415; 80048; 80053; 81001; 85025